=== PATIENT | female | born 1985 | race Hispanic/Latino ===

== ENCOUNTER 2018-08-21 12:32 | Emergency (ER) ==
--- OUTSIDE RECORDS SUMMARY | 2018-08-21 13:03 | XMS REPORT | Summary of Care ---
:1985 Author Organization [facility] [place] Address [address] [id number]- Encounter HQ Encntr_alias(FIN) [id number] Date(s): 09/26/17 - 09/26/17 [facility] [place] [address] [place] [phone] Discharge Disposition: Home or Self Care Attending Physician: Charles Morin MD Vital Signs No data available for this section Problem List No data available for this section Allergies, Adverse Reactions, Alerts No data available for this section Medications No data available for this section Results No data available for this section Immunizations No data available for this section Procedures No data available for this section Social History No data available for this section Assessment and Plan No data available for this section
--- OUTSIDE RECORDS SUMMARY | 2018-08-21 13:03 | XMS REPORT | Continuity of Care Document ---
:1985 Author Organization Interface Problems Problem Status Onset Classification Date Comments Source Date Reported Urinary tract 12/07/19 06/19/2018 [facility] infection, site 18 not specified ETOH abuse 12/01/19 06/19/2018 [facility] 18 Acute UTI 12/01/19 06/19/2018 [facility] 18 WEAKNESS Active 12/01/19 [facility] 18 Z00.00 - ENCNTR Active 09/27/19 [facility] 18 [place] MEDIC 789.00 - ABDMNAL Active 10/30/19 [facility] PAIN UN 12 [place] Alcohol abuse, 06/19/2018 [facility] uncomplicated Medications Medication Details Route Status Patient Ordering Order Source Instructions Provider Date cephalexin 500 500 mg=1 No Longer mg oral cap, PO, Active 018 [facility] capsule QID, X 7 day, # 28 cap, 0 Refill(s) Zofran 4 mg, 1 tab, Inactive Route: PO, 018 [facility] Drug form: TABDIS, ONCE, Dosing Weight 75.909, kg, Priority: STAT, Start date: 11/30/17 21:51:00 CDT, Stop date: 11/30/17 21:51:00 CDTNotes: (Same as: Zofran ODT) Sodium 1,000 mL, Inactive Chloride 0.9% 1000 ml/hr, Issac Richardson (Bolus) IV Infuse Over: 1 hr, Route: IV, 1,000, Drug form: INJ, ONCE, Priority: STAT, Dosing Weight 75.909 kg, Start date: 11/30/17 21:51:00 CDT, Stop date: 11/30/17 21:51:00 CDT Ceftriaxone 1 gm, Route: Inactive IVP, ONCE, 018 [facility] Dosing Weight 75.909, kg, Priority: STAT, Start date: 11/30/17 21:51:00 CDT, Stop date: 11/30/17 21:51:00 CDT, ABX Indication: Urinary Tract InfectionNot es: (Same As: Rocephin). Use with 100 mL NS and infuse over 30 min MEDICATION WASTE Product Size: 1000 mg Product Wasted: ___ mg Sodium 1,000 mL, Inactive Chloride 0.9% 1000 ml/hr, 018 [facility] (Bolus) IV Infuse Over: 1 hr, Route: IV, 1,000, Drug form: INJ, ONCE, Priority: STAT, Dosing Weight 75.909 kg, Start date: 11/30/17 16:35:00 CDT, Stop date: 11/30/17 16:35:00 CDT Saline Flush 10 mL, No Longer 0.9% Route: IVP, Active 018 [facility] Drug Form: INJ, Dosing Weight 75.909, kg, PRN, PRN Line Flush, Start date: 11/30/17 16:35:00 CDT, Duration: 30 day, Stop date: 12/30/17 16:34:00 CDTNotes: (Same as: BD Posiflush) NS (Bolus) IV 1,000 mL, Inactive 1,000 ml/hr, 018 [facility] Infuse Over: 1 hr, Route: IV, 1,000, Drug form: INJ, ONCE, Priority: STAT, Dosing Weight 75.909 kg, Start date: 11/30/17 16:35:00 CDT, Stop date: 11/30/17 16:35:00 CDT Allergies, Adverse Reactions, Alerts Substance Category Reaction Severity Reaction Status Date Comments Source type Reported Bactrim Assertion Drug Active allergy [facility] Immunizations Immunization Date Given Site Status Last Updated Comments Source Results Order Name Results Value Reference Date Interpretation Comments Source Range URINE AND UA Mucus Few /LPF None Seen 11/30 STOOL /LPF [facility] URINE AND UA Color Halima 11/30 STOOL [facility] URINE AND UA Glucose Negative Negative 11/30 STOOL mg/dL mg/dL [facility] URINE AND UA Leuk Est Trace Negative 11/30 STOOL [facility] *ABN* (11/30/17 4:55 PM) URINE AND UA Sq Epi Occasional Few /LPF 11/30 STOOL /LPF [facility] URINE AND UA WBC null 0 - 5 11/30 STOOL [facility] URINE AND UA RBC 12 /HPF 0 - 2 11/30 STOOL URINE AND UA Nitrite Positive Negative 11/30 STOOL [facility] *ABN* (11/30/17 4:55 PM) URINE AND UA Spec Grav 1.016 <=1.030 11/30 STOOL [facility] URINE AND UA Turbidity Slight Clear 11/30 STOOL [facility] *ABN* (11/30/17 4:55 PM) URINE AND UA Protein 30 mg/dL Negative 11/30 STOOL mg/dL /2017 [facility] URINE AND UA pH 5.0 5.0 - 8.0 11/30 STOOL [facility] URINE AND UA Bili Negative Negative 11/30 STOOL [facility] *NA* (11/30/17 4:55 PM) URINE AND UA Ketones Negative Negative 11/30 STOOL mg/dL mg/dL [facility] URINE AND UA 2.0 mg/dL 0.1 - 1.0 11/30 STOOL Urobilinogen [facility] URINE AND UA Blood Small Negative 11/30 STOOL [facility] *ABN* (11/30/17 4:55 PM) Culture: No Growth 11/30 Urine [facility] CHEM PANEL eGFR 112 11/30 Result Comment: The eGFR is calculated using the CKD-EPI formula. In most young, healthy individuals the eGFR will be >90 mL/ min/1.73m2. The eGFR declines with age. An eGFR of 60-89 may be normal in mL/min/1.7 2018 some populations, particularly the elderly, for whom the CKD-EPI formula has not been extensively validated. Use of the eGFR is not recommended in the following populations: [facility] 3m2 Individuals with unstable creatinine concentrations, including patients and those with serious co-morbid conditions. Patients with extremes in muscle mass or diet. The data above are obtained from the National Kidney Disease Education Program (NKDEP) which additionally recommends that when the eGFR is used in patients with extremes of body mass index for purposes of drug dosing, the eGFR should be multiplied by the estimated BMI. CHEM PANEL Alk Phos 74 unit/L 39 - 136 11/30 [facility] CHEM PANEL Bili Total 0.6 mg/dL 0.2 - 1.3 11/30 [facility] CHEM PANEL Albumin Lvl 4.0 g/dL 3.5 - 5.0 11/30 [facility] CHEM PANEL ALT 143 unit/L 0 - 65 11/30 [facility] CHEM PANEL AST 174 unit/L 0 - 37 11/30 [facility] CHEM PANEL Total 7.4 g/dL 6.4 - 8.4 11/30 MH [facility] CHEM PANEL Calcium Lvl 8.0 mg/dL 8.5 - 10.5 11/30 [facility] CHEM PANEL Chloride Lvl 108 meq/L 95 - 109 11/30 [facility] CHEM PANEL CO2 21 meq/L 24 - 32 11/30 [facility] CHEM PANEL Potassium 3.6 meq/L 3.5 - 5.1 11/30 Lvl [facility] CHEM PANEL Sodium Lvl 142 meq/L 135 - 145 11/30 [facility] CHEM PANEL Creatinine 0.71 mg/dL 0.50 - 11/30 MH Lvl 1.40 [facility] CHEM PANEL BUN 5 mg/dL 7 - 22 11/30 [facility] CHEM PANEL Glucose Lvl 83 mg/dL 70 - 99 11/30 [facility] CHEM PANEL AGAP 16.6 meq/L 10.0 - 11/30 MH 20.0 [facility] CHEM PANEL A/G Ratio 1.2 0.7 - 1.6 11/30 [facility] CHEM PANEL Globulin 3.4 g/dL 2.7 - 4.2 11/30 [facility] CHEM PANEL B/C Ratio 7 6 - 25 11/30 [facility] CHEM PANEL Lipase Lvl 347 unit/L 73 - 393 11/30 [facility] CHEM PANEL Magnesium 2.3 mg/dL 1.8 - 2.4 11/30 Lvl [facility] CHEM PANEL Phosphorus 3.0 mg/dL 2.5 - 4.5 11/30 [facility] ENDOCRINOL S Preg Negative Negative 11/30 OGY [facility] *NA* (11/30/17 4:38 PM) HEMATOLOGY Platelet 59 K/CMM 133 - 450 11/30 [facility] HEMATOLOGY Hct 43.0 % 36.0 - 11/30 MH 48.0 [facility] HEMATOLOGY Hgb 14.5 g/dL 12.0 - 11/30 MH 16.0 [facility] HEMATOLOGY MCHC 33.7 g/dL 32.0 - 11/30 MH 36.0 /2017 [facility] HEMATOLOGY MCH 35.7 pg 27.0 - 11/30 MH 31.0 /2017 [facility] HEMATOLOGY RBC 4.06 M/CMM 4.20 - 11/30 MH 5.40 /2017 [facility] HEMATOLOGY WBC 5.7 K/CMM 3.7 - 10.4 11/30 /2017 [facility] HEMATOLOGY RDW 15.1 % 11.5 - 11/30 MH 14.5 /2017 [facility] HEMATOLOGY MCV 106.0 fL 80.0 - 11/30 MH 98.0 /2017 [facility] HEMATOLOGY MPV 11.9 fL 7.4 - 10.4 11/30 /2017 [facility] HEMATOLOGY PTT 25.3 s 22.9 - 11/30 MH 35.8 /2017 [facility] HEMATOLOGY INR 0.94 0.85 - 11/30 MH 1.17 /2017 [facility] HEMATOLOGY PT 12.6 s 12.0 - 11/30 14.7 [facility] HEMATOLOGY Monocytes # 0.5 K/CMM 0.0 - 0.8 11/30 [facility] HEMATOLOGY Lymphocytes 1.4 K/CMM 1.0 - 5.5 11/30 MH # /2018 [facility] HEMATOLOGY Eosinophils 0.1 % 0.0 - 4.0 11/30 [facility] HEMATOLOGY Monocytes 8.1 % 2.0 - 12.0 11/30 [facility] HEMATOLOGY Lymphocytes 24.6 % 20.0 - 11/30 40.0 /2017 [facility] HEMATOLOGY Plt Morph Normal 11/30 [facility] (11/30/17 4:38 PM) HEMATOLOGY Segs 66.7 % 45.0 - 11/30 75.0 [facility] HEMATOLOGY Neutrophils 3.8 K/CMM 1.5 - 8.1 11/30 MH # /2018 [facility] HEMATOLOGY Basophils 0.5 % 0.0 - 1.0 11/30 [facility] HEMATOLOGY Macrocyte 2+ None Seen 11/30 [facility] *ABN* (11/30/17 4:38 PM) TOXICOLOGY Ethanol Lvl 330 mg/dL 11/30 Result Comment: [facility] Critical Result(s) called to Hakeem Smith 11/30/2017 18:33 by dona. Read back OK. TOXICOLOGY Etoh (%) 0.330 % 11/30 [facility] Chest 2 Chest 2 Exam: Two-view chest x-ray 09/26 - [facility] views DX views DX - [place] Reason for Exam: - Z00.00 Encounter for general adult medical examination without abnormal findings Read by: Terell Decker MD Dictated Date/time: 09/26/17 15:17 Electronically Signed by: Terell Decker MD 09/26/17 15:19 FINAL REPORT Comparison Exam: None Discussion: Cardiomediastinal silhouette is within normal limits. Both hemidiaphragms well visualized. No pulmonary edema or pleural effusions. No focal lung consolidations. Trachea is midline. No acute bony abnormalities. Impression: 1. Unremarkable Two-view chest x-ray. Vital Signs Vital Sign Value Date Comments Source Respitory Rate 21 12/01/2017 [facility] Temperature Oral (F) 98.2 F 12/01/2017 [facility] Heart Rate 85 12/01/2017 [facility] Systolic (mm Hg) 112 12/01/2017 [facility] Diastolic (mm Hg) 70 12/01/2017 [facility] Respitory Rate 18 12/01/2017 [facility] Heart Rate 73 12/01/2017 [facility] Systolic (mm Hg) 124 12/01/2017 [facility] Diastolic (mm Hg) 83 12/01/2017 [facility] Temperature Oral (F) 98.5 F 11/30/2017 [facility] Systolic (mm Hg) 131 11/30/2017 [facility] Diastolic (mm Hg) 90 11/30/2017 [facility] Respitory Rate 18 11/30/2017 [facility] Heart Rate 86 11/30/2017 [facility] Weight 75.909 11/30/2017 [facility] BMI Calculated 27.85 11/30/2017 [facility] Temperature Oral (F) 98.7 F 11/30/2017 [facility] Height 165.1 cm 11/30/2017 [facility] Encounters Location Location Encounter Encounter Reason Attending ADM DC Status Source Details Type Number For Provider Date Date Visit OD [id number] 789.00 - AMY 11/01 11/01 Active [facility] ABDMNAL YANNA /2011 [place] PAIN UN [facility] Outpt Diag [id number] Charles 09/26 09/27 [facility] Morin /2017 [place] [facility] Emergency [id number] Parveen 11/30 12/01 Jay Yanes /2017 [facility] Procedures Procedure Code Date Perfomer Comments Source
--- OUTSIDE RECORDS SUMMARY | 2018-08-21 13:04 | XMS REPORT | Summary of Care ---
:1985 Author Organization [facility] Address [address] [place], [place] [address]- Encounter HQ Toya_nuno(FIN) [id number] Date(s): 11/30/17 - 11/30/17 [facility] [id number] [place] [address]- Encounter Diagnosis ETOH abuse (Discharge Diagnosis) - 11/30/17 Acute UTI (Discharge Diagnosis) - 11/30/17 Urinary tract infection, site not specified (Final) - 12/05/17 Alcohol abuse, uncomplicated (Final) - Discharge Disposition: Home or Self Care Attending Physician: Parveen Yanes DO Vital Signs Most recent to oldest 1 2 3 [Reference Range]: Height 165.1 cm (11/30/17 4:14 PM) Temperature Oral [96.4-99.1 98.2 DegF 98.5 DegF 98.7 DegF DegF] (11/30/17 11:34 PM) (11/30/17 6:49 PM) (11/30/17 4:14 PM) Blood Pressure [90-140/60-90 112/70 mmHg 124/83 mmHg 131/90 mmHg mmHg] (11/30/17 11:34 PM) (11/30/17 10:10 PM) (11/30/17 6:49 PM) Respiratory Rate [14-20 21 BRMIN 18 BRMIN 18 BRMIN BRMIN] *HI* (11/30/17 10:10 PM) (11/30/17 6:49 PM) (11/30/17 11:34 PM) Peripheral Pulse Rate [60-100 85 bpm 73 bpm 86 bpm bpm] (11/30/17 11:34 PM) (11/30/17 10:10 PM) (11/30/17 6:49 PM) Weight 75.909 kg (11/30/17 4:14 PM) Body Mass Index 27.85 m2 (11/30/17 4:14 PM) Problem List No data available for this section Allergies, Adverse Reactions, Alerts Substance Reaction Severity Status Bactrim Active Medications cefTRIAXone + sterile water 10 mL 1 gm, Route: IVP, ONCE, Dosing Weight 75.909, kg, Priority: STAT, Start date: 21:51:00 CDT,Stop date: 11/30/17 21:51:00 CDT, ABX Indication: Urinary Tract Infection Notes: (Same As: Rocephin).Use with 100 mL NS and infuse over 30 min MEDICATION WASTE Product Size: 1000 mgProduct Wasted: ___ mg Start Date: 11/30/17 Stop Date: 11/30/17 Status: Completedcephalexin 500 mg oral capsule 500 mg=1 cap, PO, QID, X 7 day, # 28 cap, 0 Refill(s) Start Date: 11/30/17 Stop Date: 12/07/17 Status: CompletedNS (Bolus) IV 1,000 mL, 1,000 ml/hr, Infuse Over: 1 hr, Route: IV, 1,000, Drug form: INJ, ONCE , Priority: STAT, Dosing Weight 75.909 kg, Start date: 11/30/17 16:35:00 CDT, Stop date: 11/30/17 16:35:00 CDT Start Date: 11/30/17 Stop Date: 11/30/17 Status: CompletedSaline Flush 0.9% 10 mL, Route: IVP, Drug Form: INJ, Dosing Weight 75.909, kg, PRN, PRN Line Flush , Start date: 11/30/17 16:35:00 CDT, Duration: 30 day, Stop date: 12/30/17 16:34 :00 CDT Notes: (Same as: BD Posiflush) Start Date: 11/30/17 Stop Date: 12/01/17 Status: DiscontinuedSodium Chloride 0.9% (Bolus) IV 1,000 mL, 1000 ml/hr, Infuse Over: 1 hr, Route: IV, 1,000, Drug form: INJ, ONCE , Priority: STAT, Dosing Weight 75.909 kg, Start date: 11/30/17 16:35:00 CDT, Stop date: 11/30/17 16:35:00 CDT Start Date: 11/30/17 Stop Date: 11/30/17 Status: CompletedSodium Chloride 0.9% (Bolus) IV 1,000 mL, 1000 ml/hr, Infuse Over: 1 hr, Route: IV, 1,000, Drug form: INJ, ONCE , Priority: STAT, Dosing Weight 75.909 kg, Start date: 11/30/17 21:51:00 CDT, Stop date: 11/30/17 21:51:00 CDT Start Date: 11/30/17 Stop Date: 11/30/17 Status: CompletedZofran 4 mg, 1 tab, Route: PO, Drug form: TABDIS, ONCE, Dosing Weight 75.909, kg, Priority: STAT, Start date: 11/30/17 21:51:00 CDT, Stop date: 11/30/17 21:51:00 CDT Notes: (Same as: Zofran ODT) Start Date: 11/30/17 Stop Date: 11/30/17 Status: Completed Results ELECTROLYTES Most recent to oldest [Reference Range]: 1 Sodium Lvl [135-145 mEq/L] 142 mEq/L (11/30/17 4:38 PM) Potassium Lvl [3.5-5.1 mEq/L] 3.6 mEq/L (11/30/17 4:38 PM) Chloride Lvl [95-109 mEq/L] 108 mEq/L (11/30/17 4:38 PM) CO2 [24-32 mEq/L] 21 mEq/L *LOW* (11/30/17 4:38 PM) AGAP [10.0-20.0 mEq/L] 16.6 mEq/L (11/30/17 4:38 PM) CHEM PANEL Most recent to oldest [Reference Range]: 1 Creatinine Lvl [0.50-1.40 mg/dL] 0.71 mg/dL (11/30/17 4:38 PM) eGFR 112 mL/min/1.73m2 1 *NA* (11/30/17 4:38 PM) BUN [7-22 mg/dL] 5 mg/dL *LOW* (11/30/17 4:38 PM) B/C Ratio [6-25] 7 (11/30/17 4:38 PM) Glucose Lvl [70-99 mg/dL] 83 mg/dL (11/30/17 4:38 PM) Total Protein [6.4-8.4 g/dL] 7.4 g/dL (11/30/17 4:38 PM) Albumin Lvl [3.5-5.0 g/dL] 4.0 g/dL (11/30/17 4:38 PM) Globulin [2.7-4.2 g/dL] 3.4 g/dL (11/30/17 4:38 PM) A/G Ratio [0.7-1.6] 1.2 (11/30/17 4:38 PM) Calcium Lvl [8.5-10.5 mg/dL] 8.0 mg/dL *LOW* (11/30/17 4:38 PM) Phosphorus [2.5-4.5 mg/dL] 3.0 mg/dL (11/30/17 4:38 PM) Magnesium Lvl [1.8-2.4 mg/dL] 2.3 mg/dL (11/30/17 4:38 PM) ALT [0-65 unit/L] 143 unit/L *HI* (11/30/17 4:38 PM) AST [0-37 unit/L] 174 unit/L *HI* (11/30/17 4:38 PM) Alk Phos [39-136 unit/L] 74 unit/L (11/30/17 4:38 PM) Bili Total [0.2-1.3 mg/dL] 0.6 mg/dL (11/30/17 4:38 PM) Lipase Lvl [73-393 unit/L] 347 unit/L (11/30/17 4:38 PM) 1Result Comment: The eGFR is calculated using the CKD-EPI formula. In most young , healthy individualsthe eGFR will be >90 mL/min/1.73m2. The eGFR declines with age. An eGFR of 60-89 may be normal insome populations, particularly the elderly, for whom the CKD-EPI formula has not been extensively validated. Use of the eGFR is not recommended in the following populations: Individuals with unstable creatinine concentrations, including patients and those with serious co-morbid conditions. Patients with extremes in muscle mass or diet. The data above are obtained from the National Kidney Disease Education Program ( NKDEP) which additionally recommends that when the eGFR is used in patients with extremes of body mass index for purposesof drug dosing, the eGFR should be multiplied by the estimated BMI.TOXICOLOGY Most recent to oldest [Reference Range]: 1 Etoh (%) .330 % *CRIT* (11/30/17 4:38 PM) Ethanol Lvl 330 mg/dL 1 *CRIT* (11/30/17 4:38 PM) 1Result Comment: Critical Result(s) called to Hakeem Smith at 11/30/2017 18:33 by dona. Read back OK.ENDOCRINOLOGY Most recent to oldest [Reference Range]: 1 S Preg [Negative] Negative *NA* (11/30/17 4:38 PM) URINE AND STOOL Most recent to oldest [Reference Range]: 1 UA Turbidity [Clear] Slight *ABN* (11/30/17 4:55 PM) UA Color Halima *NA* (11/30/17 4:55 PM) UA pH [5.0-8.0] 5.0 (11/30/17 4:55 PM) UA Spec Grav [<=1.030] 1.016 (11/30/17 4:55 PM) UA Glucose [Negative mg/dL] Negative mg/dL *NA* (11/30/17 4:55 PM) UA Blood [Negative] Small *ABN* (11/30/17 4:55 PM) UA Ketones [Negative mg/dL] Negative mg/dL *NA* (11/30/17 4:55 PM) UA Protein [Negative mg/dL] 30 mg/dL *ABN* (11/30/17 4:55 PM) UA Urobilinogen [0.1-1.0 mg/dL] 2.0 mg/dL *HI* (11/30/17 4:55 PM) UA Bili [Negative] Negative *NA* (11/30/17 4:55 PM) UA Leuk Est [Negative] Trace *ABN* (11/30/17 4:55 PM) UA Nitrite [Negative] Positive *ABN* (11/30/17 4:55 PM) UA WBC [0-5 /HPF] >182 /HPF *HI* (11/30/17 4:55 PM) UA RBC [0-2 /HPF] 12 /HPF *HI* (11/30/17 4:55 PM) UA Sq Epi [Few /LPF] Occasional /LPF *NA* (11/30/17 4:55 PM) UA Mucus [None Seen /LPF] Few /LPF *NA* (11/30/17 4:55 PM) HEMATOLOGY Most recent to oldest [Reference Range]: 1 WBC [3.7-10.4 K/CMM] 5.7 K/CMM (11/30/17 4:38 PM) RBC [4.20-5.40 M/CMM] 4.06 M/CMM *LOW* (11/30/17 4:38 PM) Hgb [12.0-16.0 g/dL] 14.5 g/dL (11/30/17 4:38 PM) Hct [36.0-48.0 %] 43.0 % (11/30/17 4:38 PM) MCV [80.0-98.0 fL] 106.0 fL *HI* (11/30/17 4:38 PM) MCH [27.0-31.0 pg] 35.7 pg *HI* (11/30/17 4:38 PM) MCHC [32.0-36.0 g/dL] 33.7 g/dL (11/30/17 4:38 PM) RDW [11.5-14.5 %] 15.1 % *HI* (11/30/17 4:38 PM) MPV [7.4-10.4 fL] 11.9 fL *HI* (11/30/17 4:38 PM) Platelet [133-450 K/CMM] 59 K/CMM *LOW* (11/30/17 4:38 PM) Segs [45.0-75.0 %] 66.7 % (11/30/17 4:38 PM) Lymphocytes [20.0-40.0 %] 24.6 % (11/30/17 4:38 PM) Monocytes [2.0-12.0 %] 8.1 % (11/30/17 4:38 PM) Eosinophils [0.0-4.0 %] 0.1 % (11/30/17 4:38 PM) Basophils [0.0-1.0 %] 0.5 % (11/30/17 4:38 PM) Neutrophils # [1.5-8.1 K/CMM] 3.8 K/CMM (11/30/17 4:38 PM) Lymphocytes # [1.0-5.5 K/CMM] 1.4 K/CMM (11/30/17 4:38 PM) Monocytes # [0.0-0.8 K/CMM] 0.5 K/CMM (11/30/17 4:38 PM) Macrocyte [None Seen] 2+ *ABN* (11/30/17 4:38 PM) Plt Morph Normal (11/30/17 4:38 PM) PT [12.0-14.7 seconds] 12.6 seconds (11/30/17 4:38 PM) INR [0.85-1.17] 0.94 (11/30/17 4:38 PM) PTT [22.9-35.8 seconds] 25.3 seconds (11/30/17 4:38 PM) Microbiology Reports TEST:Culture: Urine STATUS:Auth (Verified) BODY SITE: SOURCE:Urine, Clean Catch COLLECTED DATE/TIME:11/30/17 4:55 PMFINAL REPORTNo Growth Immunizations No data available for this section Procedures No data available for this section Social History No data available for this section Assessment and Plan No data available for this section
--- OUTSIDE RECORDS SUMMARY | 2018-08-21 13:04 | XMS REPORT ---
:1985 [facility] [address] [place] [address] [address] Care Team Providers Name Role Phone Unavailable Unavailable Unavailable Payers Payer Name Policy Type Policy Number Effective Date Expiration Date Problems This patient has no known problems. Allergies, Adverse Reactions, Alerts Allergy Allergy Status Severity Reaction(s) Onset Inactive Treating Comments Name Type Date Date Clinician Ghislaine SMITH Active SV 2016-04 (Sulfonami -26 de 00:00:0 Antibiotic 0 s) Medications This patient has no known medications.
[2018-08-21] MEDS ORDERED: NA CHLORIDE 0.9% 1,000 ML ONE (13:57)
[2018-08-21 14:00] LABS: Urine Blood NEGATIVE (NEG); Urine Glucose NEGATIVE (NEG); Urine Protein NEGATIVE (NEG); Urine Specific Gravity <1.005 (1.005-1.030); Urine pH 5.5 (5.0-7.0)
[2018-08-21 14:11] LABS: Absolute Monocytes 0.3 K/uL (0.1-1.3); Absolute Neutrophil 3.5 K/uL (1.8-8.0); Basophils % 0.4 % (0-1.3); Eosinophils % 0.2 % (0-4.4); Hematocrit 37.7 % (36.0-45.0); Lymphocytes % 34.5 % (15.3-44.8); MPV 11.4 fL (7.6-11.3); RBC Red Blood Cell Count 3.89 M/uL (3.86-4.86)
[2018-08-21 15:03] LABS: BUN Blood Urea Nitrogen 9 mg/dL (7-18); Bicarbonate 22 mmol/L (21-32); Glucose Level 72 mg/dL (74-106); HCG, Quantitative 3317 mIU/mL (1-3); Potassium 3.6 mmol/L (3.5-5.1); Sodium Level 140 mmol/L (136-145)
--- NOTE | 2018-08-21 15:57 | RAD REPORT ---
EXAM DESCRIPTION: US - Transvaginal OB - 08/21/2018 3:42 pm CLINICAL HISTORY: with abdominal pain COMPARISON: None. FINDINGS: The uterus measures 7 x 5 x 5 centimeters. A gestational sac is present within the endome trium. The gestational sac measures 7 millimeters. A pole is not visualized. 2.5 centimeter right ovarian cyst. Left ovary appears normal in size and echotexture. An adnexal mass is not noted. No significant free fluid is seen. IMPRESSION: Intrauterine with an estimated gestational age 5 weeks 2 days VILMA 04/21/2019. A yolk sac is seen. A pole was not visualized. It is recommended that the patient have followup endovaginal sonogram in 1 week for re-evaluation
--- NOTE | 2018-08-21 16:08 | ER ---
Nurse's Notes [facility] Name: Tequila Morgan Age: 32 yrs Sex: Female : 1985 Arrival Date: 08/21/2018 Time: 12:36 Bed 25 Private MD: Diagnosis: Less than 8 weeks gestation of ;Alcohol abuse with intoxication Presentation: 08/21 12:40 Presenting complaint: Patient states: I tried to check in to [facility] and la1 they told me I was which freaked me out so I drank more wine. Transition of care: patient was not received from another setting of care. Onset of symptoms. Risk Assessment: Do you want to hurt yourself or someone else? Patient reports no desire to harm self or others. Initial Sepsis Screen: Does the patient meet any 2 criteria? No. Patient's initial sepsis screen is negative. Does the patient have a suspected source of infection? No. Patient's initial sepsis screen is negative. Care prior to arrival: None. 12:40 Method Of Arrival: Ambulatory la1 12:40 Acuity: MELISSA 3 la1 Triage Assessment: 13:10 General: Appears in no apparent distress. Behavior is calm, cooperative. ls4 13:10 Pain: Complains of pain in left lower quadrant and right lower quadrant and suprapubic ls4 area Pain currently is 3 out of 10 on a pain scale. Neuro: No deficits noted. Cardiovascular: No deficits noted. Respiratory: No deficits noted. GI: No deficits noted. Musculoskeletal: No deficits noted. 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 - Social history:: Smoking status: Patient uses tobacco products, smokes one pack cigarettes per day. Patient uses alcohol, on a daily basis. 3 bottle of wine per day, last drink was two hours ago. - Ebola Screening: : No symptoms or risks identified at this time. Screenin:24 Abuse screen: Denies threats or abuse. Denies injuries from another. Nutritional ls4 screening: No deficits noted. Tuberculosis screening: Fall Risk None identified. Assessment: 14:00 Reassessment: Patient appears in no apparent distress at this time. Patient is alert, ls4 oriented x 3, equal unlabored respirations, skin warm/dry/pink. 14:00 Pain: Complains of pain in suprapubic area, right lower quadrant and left lower ls4 quadrant Pain currently is 3 out of 10 on a pain scale. Neuro: No deficits noted. Cardiovascular: No deficits noted. Respiratory: No deficits noted. GI: Abdomen is non-distended, Bowel sounds present X 4 quads. Abd is soft X 4 quads Abdomen is tender to palpation in suprapubic area. 15:10 Reassessment: No changes from previously documented assessment. Patient is alert, ls4 oriented x 3, equal unlabored respirations, skin warm/dry/pink. 15:47 Reassessment: Patient appears in no apparent distress at this time. Patient is alert, ls4 oriented x 3, equal unlabored respirations, skin warm/dry/pink. Vital Signs: 12:41 BP 126 / 92; Pulse 80; Resp 18; Temp 97.3; Pulse Ox 98% on R/A; Weight 79.38 kg; Height la1 5 ft. 5 in. (165.10 cm); Pain 0/10; 13:40 BP 118 / 70; Pulse 78; Resp 16; Pulse Ox 99% on R/A; Pain 3/10; ls4 14:38 BP 109 / 81; Pulse 89; Resp 16; Temp 98.4(O); Pulse Ox 99% ; lt1 15:30 BP 117 / 78; Pulse 80; Resp 16; Temp 98.6(O); Pulse Ox 99% on R/A; Pain 3/10; ls4 16:40 BP 112 / 66; Pulse 78; Resp 16; Pulse Ox 99% on R/A; Pain 3/10; ls4 12:41 Body Mass Index 29.12 (79.38 kg, 165.10 cm) la1 ED Course: 12:36 Patient arrived in ED. rg4 12:40 Arm band placed on left wrist. la1 12:41 Triage completed. la1 12:54 Daily Harper [facility]C [facility] kb 12:55 Reid Doe MD is Attending Physician. kb 12:56 Holly Morales, RN is Primary Nurse. ls4 13:05 Patient has correct armband on for positive identification. Placed in gown. Bed in low ls4 position. Side rails up X 1. 13:05 Warm blanket given. Verbal reassurance given. ls4 13:58 Missed attempt(s): 22 gauge in left antecubital area. lt1 13:58 Missed attempt(s): 22 gauge in left hand. lt1 13:58 Initial lab(s) drawn, by me, sent to lab. Inserted saline lock: 22 gauge in right lt1 forearm, using aseptic technique. 14:25 No provider procedures requiring assistance completed. ls4 15:30 Patient taken to ultrasound. via wheelchair. ls4 15:43 US Transvaginal Ob In Process Unspecified. EDMS 15:46 Patient moved back from ultrasound. ls4 16:40 IV discontinued, intact, bleeding controlled, No redness/swelling at site. Pressure ls4 dressing applied. 17:19 Quantitative Hcg Sent. ls4 Administered Medications: 13:53 Drug: NS 0.9% 1000 ml Route: IV; Rate: 1000 ml; Site: left forearm; ls4 14:53 Follow up: IV Status: Completed infusion; IV Intake: 1000ml ls4 Intake: 14:53 IV: 1000ml; Total: 1000ml. ls4 Outcome: 16:07 Discharge ordered by . kb 16:44 Patient left the ED. ls4 17:20 Discharged to home ambulatory. ls4 17:20 Condition: good 17:20 Discharge instructions given to patient, family, Instructed on discharge instructions, follow up and referral plans. medication usage, Demonstrated understanding of instructions, follow-up care. Signatures: Dispatcher [employer] EDWI Daily Harper, CORONER'S JUROR-C CORONER'S JUROR-CkAnton Donnelly RN RN la1 Latrice Matos 4 Holly Morales, EDUAR RN ls4 Fatuma Alba lt Corrections: (The following items were deleted from the chart) 17:23 17:22 IV discontinued, intact, bleeding controlled, No redness/swelling at site. ls4 Pressure dressing applied, ls4
--- NOTE | 2018-08-21 16:08 | EDPHYS ---
Physician Documentation [facility] Name: Tequila Morgan Age: 32 yrs Sex: Female : 1985 Arrival Date: 08/21/2018 Time: 12:36 Bed 25 Private MD: ED Physician Reid Doe HPI: 08/21 16:28 This 32 yrs old Female presents to ER via Ambulatory with complaints of Drank kb Alcohol While . 16:32 course: care: none. Previous pregnancies: the patient has never been kb . Associated signs and symptoms: Pertinent positives: intoxicated, Pertinent negatives: abdominal pain, chest pain, diarrhea, dysuria, fever, frequency, nausea, ruptured membranes, seizure, shortness of breath, vaginal bleeding, vaginal discharge, vomiting. The patient has not experienced similar symptoms in the past. The patient has not recently seen a physician. Pt reports she went to [facility] to do detox from alcohol and they told her she was . She left there, drank more wine and went back because she decided that would be the best. They called 911 and told her she had to come to the ER to be evaluated before they could admit her. Pt reports she drinks about 3 bottles of wine daily. States she didn't think she was that drunk today, but they told her she was 3 times over the limit. Recently admitted to [facility] for intoxication and did some rehab at [facility]. . 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 - Social history:: Smoking status: Patient uses tobacco products, smokes one pack cigarettes per day. Patient uses alcohol, on a daily basis. 3 bottle of wine per day, last drink was two hours ago. - Ebola Screening: : No symptoms or risks identified at this time. ROS: 16:19 Constitutional: Negative for fever, chills, and weight loss, ENT: Negative for injury, kb pain, and discharge, Neck: Negative for injury, pain, and swelling, Cardiovascular: Negative for chest pain, palpitations, and edema, Respiratory: Negative for shortness of breath, cough, wheezing, and pleuritic chest pain, Abdomen/GI: Negative for abdominal pain, nausea, vomiting, diarrhea, and constipation, MS/Extremity: Negative for injury and deformity, Skin: Negative for injury, rash, and discoloration, Neuro: Negative for headache, weakness, numbness, tingling, and seizure. Exam: 16:27 Constitutional: This is a well developed, well nourished patient who is awake, alert, kb and in no acute distress. Head/Face: Normocephalic, atraumatic. Chest/axilla: Normal chest wall appearance and motion. Nontender with no deformity. No lesions are appreciated. Cardiovascular: Regular rate and rhythm with a normal S1 and S2. No gallops, murmurs, or rubs. Normal PMI, no JVD. No pulse deficits. Respiratory: Lungs have equal breath sounds bilaterally, clear to auscultation and percussion. No rales, rhonchi or wheezes noted. No increased work of breathing, no retractions or nasal flaring. Back: No spinal tenderness. No costovertebral tenderness. Full range of motion. Skin: Warm, dry with normal turgor. Normal color with no rashes, no lesions, and no evidence of cellulitis. MS/ Extremity: Pulses equal, no cyanosis. Neurovascular intact. Full, normal range of motion. Neuro: Awake and alert, GCS 15, oriented to person, place, time, and situation. Cranial nerves II-XII grossly intact. Motor strength 5/5 in all extremities. Sensory grossly intact. Cerebellar exam normal. Normal gait. 16:27 Abdomen/GI: Inspection: obese Bowel sounds: normal, in all quadrants, Palpation: soft, in all quadrants, moderate abdominal tenderness, in the suprapubic area, right lower quadrant and left lower quadrant. Vital Signs: 12:41 BP 126 / 92; Pulse 80; Resp 18; Temp 97.3; Pulse Ox 98% on R/A; Weight 79.38 kg; Height la1 5 ft. 5 in. (165.10 cm); Pain 0/10; 13:40 BP 118 / 70; Pulse 78; Resp 16; Pulse Ox 99% on R/A; Pain 3/10; ls4 14:38 BP 109 / 81; Pulse 89; Resp 16; Temp 98.4(O); Pulse Ox 99% ; lt1 15:30 BP 117 / 78; Pulse 80; Resp 16; Temp 98.6(O); Pulse Ox 99% on R/A; Pain 3/10; ls4 16:40 BP 112 / 66; Pulse 78; Resp 16; Pulse Ox 99% on R/A; Pain 3/10; ls4 12:41 Body Mass Index 29.12 (79.38 kg, 165.10 cm) la1 MDM: 12:55 Patient medically screened. kb 16:18 Data reviewed: vital signs, nurses notes. Data interpreted: Pulse oximetry: on room air kb is 99 %. Interpretation: normal. Counseling: I had a detailed discussion with the patient and/or guardian regarding: the historical points, exam findings, and any diagnostic results supporting the discharge/admit diagnosis, lab results, radiology results, the need for outpatient follow up, an OB/Gyne specialist, to return to the emergency department if symptoms worsen or persist or if there are any questions or concerns that arise at home. ED course: Pt able to ambulate without assist with steady gait. No ataxia. Speech clear. Clinically sober. Discharged to [facility], pt calling for a ride. 16:37 ED course: Woman from [facility] came to check on pt. Reports they will not be able to kb detox her because she can't take the medications while . Requests we transfer the pt somewhere else "maybe in [place]" for detox. . 08/21 13:17 Order name: Urine Dipstick--Ancillary (enter results); Complete Time: 14:03 bd 08/21 13:23 Order name: Quantitative Hcg kb 08/21 13:23 Order name: Abo/rh Typing; Complete Time: 14:44 kb 08/21 13:23 Order name: Basic Metabolic Panel; Complete Time: 15:11 kb 08/21 13:23 Order name: CBC with Diff; Complete Time: 14:19 kb 08/21 13:23 Order name: Test, Serum; Complete Time: 14:42 kb 08/21 13:23 Order name: Urine Dipstick-Ancillary (obtain specimen); Complete Time: 13:53 kb 08/21 13:23 Order name: IV Saline Lock; Complete Time: 13:53 kb 08/21 13:23 Order name: Labs collected and sent; Complete Time: 13:53 kb 08/21 13:23 Order name: ETOH Level; Complete Time: 14:42 kb 08/21 13:24 Order name: HCG, Quantitative; Complete Time: 15:11 EDMS 08/21 15:11 Order name: US Transvaginal Ob; Complete Time: 16:02 kb 08/21 15:29 Order name: ABO/RH no charge; Complete Time: 15:32 EDMS 08/21 13:23 Order name: NPO; Complete Time: 13:53 kb Administered Medications: 13:53 Drug: NS 0.9% 1000 ml Route: IV; Rate: 1000 ml; Site: left forearm; ls4 14:53 Follow up: IV Status: Completed infusion; IV Intake: 1000ml ls4 Disposition: 16:56 Co-signature as Attending Physician, Reid Doe MD. rn Disposition: 08/21/18 16:07 Discharged to Home. Impression: Less than 8 weeks gestation of , Alcohol abuse with intoxication. - Condition is Stable. - Discharge Instructions: First Trimester of , [id number], Alcohol Intoxication, [id number]-Muaq. - Medication Reconciliation Form, Thank You Letter, Antibiotic Education, Prescription Opioid Use form. - Follow up: Emergency Department; When: As needed; Reason: Worsening of condition. Follow up: Private Physician; When: 2 - 3 days; Reason: Recheck today's complaints, Continuance of care, Re-evaluation by your physician. Signatures: Dispatcher [employer] EDMI Daily Harper, STERILE PRODUCTS PROCESSOR-C STERILE PRODUCTS PROCESSOR-Ckb Reid Doe MD MD rn Attema, Lee RN RN la1 Holly Morales RN RN ls4 Corrections: (The following items were deleted from the chart) 16:19 16:18 ED course: Pt able to ambulate without assist with steady gait. No ataxia. Speech kb clear. Clinically sober. . kb 16:42 16:32 Pt reports she went to [facility] to do detox from alcohol and they told her she kb was . She left there, drank more wine and went back because she decided that would be the best. They called 911 and told her she had to come to the ER to be evaluated before they could admit her. . kb 16:44 16:07 08/21/2018 16:07 Discharged to Home. Impression: Less than 8 weeks gestation of ls4 ; Alcohol abuse with intoxication. Condition is Stable. Forms are Medication Reconciliation Form, Thank You Letter, Antibiotic Education, Prescription Opioid Use. Follow up: Emergency Department; When: As needed; Reason: Worsening of condition. Follow up: Private Physician; When: 2 - 3 days; Reason: Recheck today's complaints, Continuance of care, Re-evaluation by your physician. kb
== END 2018-08-21 16:44 | disposition home or self-care (01) ==
LOC: ER 12:32
DX: O99.311 Alcohol use complicating pregnancy, first trimester (principal); F10.120 Alcohol abuse with intoxication, uncomplicated; Z3A.01 Less than 8 weeks gestation of pregnancy
CPT/HCPCS: 36415; 76817; 80048; 80320; 81003; 84702; 84703; 85025; 86900; 86901; 96360; 99284; J7030